=== PATIENT | male | born 1950 | race Caucasian/White ===

== ENCOUNTER 2017-03-20 21:18 | Emergency (ER) | payer BC, MEDICARE ==
--- NOTE | ~2017-03-20 | CT4 ---
[facility] A Service of [facility] RADIOLOGY TEXT RESULTS PATIENT: ADALBERTO MCLAUGHLIN V LOCATION: [facility] : [birth year] UNIT #: [id number] AGE: [address]: Keshawn Salmon MD SEX: M ORDER DR: [id number] [facility] [address] [place], [place] [address] [id number] E MR#: [id number] Acc #: [id number] NAME: ADALBERTO MCLAUGHLIN : 1950 SEX: M STUDY DATE/TIME: 03/20/2017 21:33 UNIT: [facility] ROOM: STUDY DESCRIPTION: CT Abd and Pelv Wo Cont Attending Physician: Chris Salmon M.D. Ordering Physician: Ed Lewis Bean M.D. Primary Care Physician: Adonis Sandoval M.D. MEDICAL IMAGING REPORT This report is preliminary unless electronic signature is present EXAMINATION CT abdomen and pelvis without contrast DATE 03/20/2017 HISTORY 66-year-old male with bleeding when urinating today. History of kidney stones. Previous myocardial infarction, transient ischemic attack, COPD and bronchitis. History of umbilical hernia repair. COMPARISON CT abdomen and pelvis with contrast 10/03/2014. CT angiography of the abdomen and pelvis 11/18/2016. PROCEDURE 3 mm axial images from the lung bases and lesser trochanters without intravenous or enteric contrast administration. Sagittal and coronal reformatted images were obtained. This CT exam was performed with one or more of the following radiation dose reduction techniques: automatic control, adjustment of mA and/or kV according to patient size, and iterative reconstruction. FINDINGS ABDOMEN FINDINGS: Some of the images are degraded by patient motion. Multiple nonobstructing bilateral intrarenal calculi are present. A dominant stone within the right lower renal pole measures approximately 8 mm. However, no definite ureteral calculus, hydronephrosis or hydroureter is appreciated on either side, no perinephric inflammatory changes are evident. Low-density bilateral renal lesion lesions are seen. The larger of these [facility] A Service of [facility] RADIOLOGY TEXT RESULTS PATIENT: ADALBERTO MCLAUGHLIN [id number] : [birth year] UNIT #: [id number] AGE: [address]: Keshawn Salmon MD SEX: M ORDER DR: are favored to represent cysts in each lower renal pole, largest on the left measuring 4 cm. A nonspecific low-density lesion in the right upper renal pole measures 8 mm, too small to characterize but statistically favored to represent a cyst. Advanced emphysematous changes are present in the lung bases. Focal nodular density is present within the left lung base measuring 1 cm which is a new finding since 11/10/2016, and is favored to represent benign infectious-inflammatory etiology, based upon its morphology. Liver, spleen, pancreas, adrenals are normal. Tiny gallstone is present without pericholecystic inflammation or biliary ductal dilation. 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 The endosac measures 4.3 x 3.8 cm and is unchanged compared to 11/18/2016. Evaluation of bowel is limited due to lack of enteric contrast. The appendix appears normal. Diverticular changes are present within the colon without evidence of acute diverticulitis. No evidence of active bowel inflammatory change or bowel obstruction. PELVIS FINDINGS: There is mild prostatic enlargement protruding into the urinary bladder base. The rectum is within normal limits. Surgical changes are seen within left groin. Probable bone island in the left iliac wing. No acute osseous abnormalities are identified. Moderately advanced diminished disc height at L5-S1. IMPRESSION 1. Nonobstructing bilateral renal stones. No ureteral calculus or hydronephrosis is seen. No perivesical or perinephric inflammatory changes are identified. 2. Low-density bilateral renal lesions favored to represent cysts, not appreciably changed from 11/18/2016. 3. 1 cm patchy nodular density in the periphery of the left lower lobe is new since 11/18/2016, strongly favored to represent focal infectious - inflammatory nodule. Consider short-term CT chest followup in 4-6 months to document improvement or resolution. Advanced emphysematous changes in lung bases. 4. 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 The endosac is stable at 4.3 cm. 5. Uncomplicated cholelithiasis. 6. Uncomplicated colonic diverticulosis. 7. Mild prostatic enlargement. Dictated by... Razia Vargas M.D. THIS IS AN ELECTRONICALLY VERIFIED REPORT [facility] A Service of [facility] & [facility] RADIOLOGY TEXT RESULTS PATIENT: ADALBERTO MCLAUGHLIN V [id number] : [birth year] UNIT #: [id number] AGE: [address]: Keshawn Salmon MD SEX: M ORDER DR: Razia Vargas M.D. at 03/25/2017 5:40 AM JESSICA/matt TD: 03/20/2017 23:58 JOB #: [id number] MEDICAL IMAGING REPORT Page 1 of 1 COPY
[2017-03-20 21:03] LABS: BASOPHIL% 0.5 % (0-2.5); EOSINOPHIL# 0.2 X10e3 (0-0.7); EOSINOPHIL% 2.8 % (0.0-7.0); HEMATOCRIT 43.8 % (38.0-50.0); HEMOGLOBIN 14.1 gm/dL (13.0-16.0); LYMPHOCYTE% 22.9 % (17.0-45.0); MEAN CELL VOLUME 89.6 FL (83-96); MEAN CORPUSCULAR HEMOGLOBIN 28.9 PG (28-34); MEAN CORPUSCULAR HGB CONC 32.3 g/dL (30-36); MEAN PLATELET VOLUME 7.5 FL (6.5-11.5); MONOCYTE% 11.5 % (3.0-12.0); NEUTROPHIL# 5.3 X10e3 (1.5-7.1); NEUTROPHIL% 62.3 % (40-75); PLATELET COUNT 264 X10e3 (140-420); RED BLOOD COUNT 4.89 X10e (3.90-5.60); RED CELL DISTRIBUTION WIDTH 14.6 % (11.0-15.5); WHITE BLOOD COUNT 8.5 X10e3 (4.0-10.5)
[2017-03-20 21:03] LABS: URINE SOURCE CLEAN CATCH
[2017-03-20 21:04] LABS: DIFF IND NO
[2017-03-20 21:08] LABS: URINE APPEARANCE CLEAR; URINE BILIRUBIN NEG (NEG); URINE BLOOD 3+ (NEG); URINE COLOR YELLOW; URINE GLUCOSE NEG (NEG); URINE KETONE NEG (NEG); URINE LEUKOCYTE ESTERASE TRACE (NEG); URINE NITRATE NEG (NEG); URINE PH 6.5 (5-8); URINE PROTEIN NEG (NEG); URINE SPECIFIC GRAVITY 1.011 (1.003-1.035)
[2017-03-20 21:10] LABS: URBCS1 AUWI INNUM /[HPF] (0-2); URINE BACTERIA AUWI NEG (NEGATIVE); URINE SQUAMOUS EPITHELIAL CELL NONE SEEN /[HPF]
[2017-03-20 21:11] LABS: CULTURE INDICATED? NO
[~2017-03-20 21:18] MED LIST: ADVAIR; ADVAIR 250-501 EACH IH; ADVAIR INH; ALPRAZOLAM; ALPRAZOLAM PO; ASPIRIN PO; ASPIRIN81 M1 PO; ASPIRIN81 M2 PO; ASTELIN137 MCG; BACTRIM DS TABL1 TA1 PO; COMBIVENT INH14.7 GM; COMBIVENT INH14.7 GM INH; COMBIVENT RESPIM4 GM INH; DEXAMETHASONE1 MG PO; FORADIL12 MCG; LEVAQUIN PO; LIPITOR; LOTREL; LOTREL 5/20 MG1 CAP PO; PLAVIX PO; PROAIR HFA8.5 GM INH; SPIRIVA18 MCG; SPIRIVA18 MCG INH; SYMBICORT INH; THEOPHYLLIN PO; ZOCOR PO; [UNRECOGNIZED DRUG - REMARK]
[2017-03-20 21:21] LABS: ALKALINE PHOSPHATASE 65 U/L (32-92); ALT (SGPT) 16 U/L (10-40); AST (SGOT) 21 U/L (10-42); BILIRUBIN,TOTAL 0.3 mg/dL (0.2-2.0); BLOOD UREA NITROGEN 14 mg/dL (9-23); BUN/CREATININE RATIO 15.55; CALCIUM SERUM 9.3 mg/dL (8.4-10.2); CARBON DIOXIDE 29 mmol/L (22-31); CHLORIDE 100 mmol/L (100-111); CREATININE SERUM 0.9 mg/dL (0.6-1.4); GLOM FILT RATE Estimated 88.1 mL/min (>60); GLUCOSE FASTING 100 mg/dL (70-110); POTASSIUM 4.2 mmol/L (3.5-5.1); PROTEIN TOTAL SERUM 7.7 g/dL (6.0-8.3); SODIUM 138 mmol/L (135-145)
[2017-03-20 21:34] LABS: INR 1.1; PROTHROMBIN TIME (PATIENT) 11.6 SECONDS (9.6-11.5)
[2017-03-20 21:55] LABS: BILIRUBIN, DIRECT <0.1 mg/dL (0.0-0.2); BILIRUBIN,INDIRECT 0.2 mg/dL (0.0-0.9)
== END 2017-03-21 00:05 | disposition home or self-care (01) ==
LOC: CED 21:18
PROVIDERS: Emergency Medicine
DX: R31.0 Gross hematuria (principal); J44.9 Chronic obstructive pulmonary disease, unspecified; Z86.73 Personal history of transient ischemic attack (TIA), and cerebral infarction without residual deficits; I25.2 Old myocardial infarction; Z88.0 Allergy status to penicillin
CPT/HCPCS: 36415; 74176; 80048; 80076; 81003; 85025; 85610; 96374; 96375; 99284; J2270; J2405; J2930

== ENCOUNTER → 2017-04-20 | Outpatient (CLI) | payer BC, MEDICARE ==
[~2017-04-20] MED LIST changes: +ALBUTEROL MININEB NEB; +ARNUITY ELLIP200 MCG INH; +DALIRESP500 MCG DOB; +IPRATROPIUM BROM5 GM MC; +LEXAPRO20 MG PO; +LIPITOR20 MG PO; +LOPRESSOR PO; +LOTREL 5-20 MG1 EACH PO; +METOPROLOL TAR25 MG PO; +OMEPRAZOLE20 M2 PO; +PREDNISONE PO; +STIOLTO RESPIMAT4 GM INH; +THEO-DUR300 MG PO
--- NOTE | ~2017-04-20 | US77 ---
[facility] A Service of [facility] & [facility] RADIOLOGY TEXT RESULTS PATIENT: ADALBERTO MCLAUGHLIN V LOCATION: [facility] : 49 UNIT #: [id number] AGE: [address]: Mitchell Vital MD SEX: M ORDER DR: [id number] [facility] [address] [place], [place] [address] [id number] O MR#: [id number] Acc #: [id number] NAME: ADALBERTO MCLAUGHLIN : 1950 SEX: M STUDY DATE/TIME: 04/20/2017 12:43 UNIT: [facility] ROOM: STUDY DESCRIPTION: US Kidney Bilateral Complete Attending Physician: Mitchell Vital M.D. Referring Physician: Mitchell Vital M.D. Ordering Physician: Mitchell Vital M.D. Primary Care Physician: Adonis Sandoval M.D. MEDICAL IMAGING REPORT This report is preliminary unless electronic signature is present EXAM Bilateral renal ultrasound DATE: 04/20/2017 HISTORY Kidney stone. Hematuria. Enlarged prostate. COPD. Hypertension. COMPARISON CT abdomen and pelvis without contrast 03/20/2017. FINDINGS The right kidney measures approximately 8.5 cm x 3.9 cm x 5.6 cm. The left kidney measures 8.3 cm x 4.0 cm x 4.4 cm. Mildly complex cyst containing a single thin internal septation is seen within the left lower renal pole measuring 4.2 cm x 3.3 cm x 4.2 cm. The cystic focus in the right lower renal pole documented on previous CT is not satisfactorily visualized on today's ultrasound. The small nonobstructing stone seen within both kidneys on previous CT have no definite sonographic correlate today. No hydronephrosis is seen. Urinary bladder is within normal limits. IMPRESSION 1. Benign appearing mildly complex cyst in the left lower renal pole measuring up to 4.2 cm. 2. Cystic focus seen at the right lower renal pole on previous CT is not well visualized on today's examination. 3. The nonobstructing bilateral renal stones seen on previous CT cannot be satisfactorily visualized on today's examination. 4. No hydronephrosis. STS. [facility] A Service of [facility] & [facility] RADIOLOGY TEXT RESULTS PATIENT: ADALBERTO MCLAUGHLIN V LOCATION: [facility] #: [id number] : [birth year] UNIT #: [id number] AGE: [address]: Mitchell Vital MD SEX: M ORDER DR: Dictated by... Razia Vargas M.D. THIS IS AN ELECTRONICALLY VERIFIED REPORT Razia Vargas M.D. at 04/21/2017 2:10 PM JESSICA/monica TD: 04/20/2017 22:00 JOB #: [id number] MEDICAL IMAGING REPORT Page 1 of 1 COPY
== END | disposition home or self-care (01) ==
LOC: CGUS 12:13
DX: N20.0 Calculus of kidney (principal); N28.1 Cyst of kidney, acquired
CPT/HCPCS: 76770

== ENCOUNTER 2017-07-24 18:39 | Inpatient (IN) | payer BC, MEDICARE ==
[~2017-07-24] VITALS: Ht 182.9 cm; Wt 78.2 kg
--- NOTE | ~2017-07-24 | HP ---
Unit #: [id number] #: [id number] Patient: ADALBERTO MCLAUGHLIN V [id number] [address] [place], [place] [address] [id number] I MR#: [id number] NAME: ADALBERTO MCLAUGHLIN V. ROOM: 578 Age: 67 Sex: M Admission Date: 07/24/2017 : 1950 Attending Physician: Josue Perkins M.D. Primary Care Physician: Adonis Sandoval M.D. HISTORY AND PHYSICAL CHIEF COMPLAINT Cough, shortness of breath, chest pressure, chest tightness. DISCUSSION This is a 67-year-old gentleman with past medical history of COPD, oxygen dependent, dyslipidemia, anxiety, panic attack, depression, hypertension, history of acid reflux, abdominal aortic aneurysm status post repair in 2014. He presented to emergency with chief complaint of cough, shortness of breath, chest tightness, wheezing. These symptoms got progressively worse over last one week but got progressively worse over three days and he underwent workup. Underwent evaluation, found to be wheezing in the emergency room, given nebulizer. He has a drop in oxygen on ambulation 84%. Underwent further workup on CT scan. CT scan showing there's a new soft tissue mass in the mediastinum 2.4 x 4.4 cm at T4 level concerning for lung malignancy and he had been admitted for further workup and evaluation. He denies fever, chills. He said he had some chest tightness and chest pressure but denies any chest pain, diaphoresis, palpitation, dysuria or any other complaint. PAST MEDICAL HISTORY 1. COPD, oxygen dependent. 2. Hypertension. 3. History of abnormal Cardiolite stress test in 2012, followed by cardiac cath which was normal. 4. History of ex-smoking, quit smoking in the past. Smoked for 40 years. 5. History of anxiety/panic attack. 6. Depression. 7. GERD. 8. History of abdominal aortic aneurysm, status post repair in 2014. PAST SURGICAL HISTORY 1. Back surgery. 2. Right knee surgery. 3. Abdominal surgery in the past. 4. Varicose vein surgery. 5. Abdominal aortic aneurysm repair in 2014. SOCIAL HISTORY Patient lives with . He quit smoking 16-17 years ago but he smoked before that for 40 years. Denies alcohol abuse. No other illicit drug abuse. He is on disability. ALLERGIES Unit #: [id number] #: [id number] Patient: ADALBERTO MCLAUGHLIN V Allergic to penicillin. FAMILY HISTORY Patient's mother at age 71 from [place]. The patient's father at age 68 from COPD. MEDICATIONS Medication from home is followin. Lotrel /20, 1 tablet p.o. daily. 2. Daliresp 500 mcg daily. 3. Omeprazole 20 mg daily. 4. Albuterol and Atrovent 4x a day p.r.n. 5. Lipitor 20 mg daily. 6. Stiolto, 2 puffs daily. 7. Prateek-Dur 300 mg b.i.d. 8. Xanax 0.25 mg 3x daily. 9. Arnuity Ellipta 200 mcg daily. 10. Metoprolol 12.5 mg p.o. twice daily. 11. Lexapro 20 mg daily. REVIEW OF SYSTEMS All review of system negative except History of Presenting Illness. PHYSICAL EXAMINATION On examination, middle aged man lying in the bed comfortably, not in any distress. VITAL SIGNS: His current vitals are following - temperature 97.8, heart rate 87, respiratory rate 18, blood pressure 134/74. Oxygen 97% and on ambulation oxygen dropped to 84%. GENERAL: On general examination, he is alert, awake, oriented x3, comfortable, not in any distress. HEENT: On HEENT examination, pupils equal, reactive to light and accommodation. Head is normocephalic, atraumatic. Extraocular muscles intact. Mucous membranes moist. NECK: Supple. No JVD, no thyromegaly, no carotid bruit. LUNGS: Decreased air entry bilaterally with scattered wheeze. HEART: S1, S2. Regular rate and rhythm. No murmur. ABDOMEN: Soft, nontender, nondistended. Bowel sound positive. EXTREMITIES: Inspection normal. No cyanosis, no clubbing, no edema. NEUROLOGICAL: He is alert, oriented x3. No focal neurologic deficits. Power 5/5 on both sides. Cranial nerves II-XII intact. SKIN: Warm and dry. PSYCH: Normal mood and affect. DIAGNOSTIC STUDIES LABORATORY: His laboratory workup is following - INR is 1.1, BNP 31. Chemistry - sodium 137, potassium 3.9, chloride 100, glucose 115, BUN 16, creatinine 0.8. LFT within normal limit. Troponin less than 0.05. White count 8.8, hemoglobin 13, hematocrit 40, platelet 260. IMAGING: Chest x-ray unremarkable. CT scan of chest shows new soft tissue mass in mediastinum 2.4 x 4.4 x 5 cm at level of T4 consistent for lung malignancy. Unit #: [id number] #: [id number] Patient: ADALBERTO MCLAUGHLIN V ASSESSMENT AND PLAN 1. Acute exacerbation of COPD, oxygen dependent at home. Will admit the patient, start on IV Rocephin, Zithromax, dual nebulizer, IV Solu-Medrol. 2. New soft tissue malignancy appearing mass in mediastinum concerning for lung malignancy primary and will ask Dr. Pickering to evaluate and will get a CT head without contrast. 3. History of dyslipidemia. 4. Anxiety/panic attack. 5. History of depression. 6. Hypertension. 7. Abdominal aortic aneurysm. History of repair in 2014. 8. History of GERD. 9. History of abnormal stress test in the past but cardiac cath was normal in 2012. 10. DVT prophylaxis. Will place the patient on Lovenox. Dictated by Juan Cuellar M.D. RAMON/palma TD: 07/25/2017 11:02 JOB #: [id number] HISTORY AND PHYSICAL Page 1 of 1 X X HISTORY AND PHYSICAL
--- NOTE | ~2017-07-24 | CR72 ---
[facility] A Service of [facility] & [facility] RADIOLOGY TEXT RESULTS PATIENT: ADALBERTO MCLAUGHLIN V LOCATION: [facility] 578-01 : [birth year] UNIT #: [id number] AGE: [address]: CASIMIRO TORRESJ Idalia SEX: M ORDER DR: [id number] [facility] [address] [place], [place] [address] [id number] I MR#: [id number] Acc #: [id number] NAME: ADALBERTO MCLAUGHLIN V. : 1950 SEX: M STUDY DATE/TIME: 07/24/2017 19:35 UNIT: [facility] ROOM: [facility] STUDY DESCRIPTION: CR Chest Single View Portable Attending Physician: Josue Perkins M.D. Ordering Physician: Thad Wesley M.D. Primary Care Physician: Adonis Sandoval M.D. MEDICAL IMAGING REPORT This report is preliminary unless electronic signature is present EXAM AP view of the chest COMPARISON August 03, 2016, May 29, 2016 and April 03, 2016. INDICATIONS 67-year-old male with dyspnea and chest pain for 2 days. History of emphysema and COPD. 30+ year history of cigarette smoking. FINDINGS Marked emphysema is again noted. There is lung hyperexpansion most suggestive of COPD. There is slightly increased opacities in the left lung base and the medial right lung base which may reflect atelectasis. These appear to not persist in the left lung base on all views, but are somewhat persistent in the right lung base, perhaps accentuated by overlapping ribs and eventration of the diaphragm. This appearance appears stable as compared to April 03, 2016. Cardiomediastinal silhouette is within normal limits. There is calcification of the aortic arch. IMPRESSION 1. Not mentioned in the body of the report there is suprarenal abdominal aortic stent, grossly stable in position when comparing to July 2016. 2. Opacities in the left lung base which do not persist on the same exam, most consistent with atelectasis. Some very faint opacities in the medial right lung base which may be actually reflective of normal bronchovascular structures overlapping with the ribs and the diaphragm. This would seem to at most represent atelectasis. Correlation to exclude signs of possible pneumonia recommended which is thought less likely. No evidence of a pneumothorax or pleural effusion. 3. Grossly stable findings of COPD and emphysema. [facility] A Service of [facility] & [facility] RADIOLOGY TEXT RESULTS PATIENT: ADALBERTO MCLAUGHLIN V LOCATION: [place] [address] : [birth year] UNIT #: [id number] AGE: [address]: DARRIUS TORRES V SEX: M ORDER DR: Dictated by... Jeffrey Chowdhury M.D. THIS IS AN ELECTRONICALLY VERIFIED REPORT Jeffrey Chowdhury M.D. at 07/31/2017 9:17 PM SALAZAR/richard TD: 07/25/2017 11:30 JOB #: [id number] MEDICAL IMAGING REPORT Page 1 of 1 COPY
--- NOTE | ~2017-07-24 | CT16 ---
[facility] A Service of [facility] & [facility] RADIOLOGY TEXT RESULTS PATIENT: ADALBERTO MCLAUGHLIN V LOCATION: [facility] 578-01 : [birth year] UNIT #: [id number] AGE: [address]: Josue Perkins MD SEX: M ORDER DR: [id number] [facility] [address] [place], [place] [address] [id number] I MR#: [id number] Acc #: [id number] NAME: ADALBERTO MCLAUGHLIN V. : 1950 SEX: M STUDY DATE/TIME: 07/24/2017 21:23 UNIT: [facility] ROOM: [facility] STUDY DESCRIPTION: CT Angio Chest for PE Attending Physician: Josue Perkins M.D. Ordering Physician: Thad Wesley M.D. Primary Care Physician: Adonis Sandoval M.D. MEDICAL IMAGING REPORT This report is preliminary unless electronic signature is present EXAM Chest CT PE protocol with contrast 07/24/2017 INDICATIONS Short of air chest tightness, pain with inspiration 3 days. Elevated D-dimer. TECHNIQUE Contrast enhanced CT scan chest PE protocol was performed with 3-D reformats. This CT exam was performed with one or more of the following radiation dose reduction techniques: automatic exposure control, adjustment of mA and/or kV according to patient size, and iterative reconstruction. COMPARISON 10/28/[address] chest: IV bolus adequate. The patient is status post aortic stent placement. There is advanced atherosclerotic change of the visualized abdominal aorta. Thoracic aorta demonstrates more mild atherosclerotic change. No aneurysm or dissection. No evidence of acute pulmonary embolus in the central pulmonary arterial tree. Included thyroid unremarkable. No pericardial effusion. Incidental gynecomastia. No axillary adenopathy. There is a new soft tissue mass posterior to the trachea extending into the tracheoesophageal groove with a posterior margin abutting the T4 vertebral body. The mass extends to the level of the jorge. Dimensions are approximately 2.4 x 4.4 x 5.0 cm. The posterior margin abuts the trachea and there is obliteration of the fat planes between the mass, the trachea and the esophagus. On the sagittal reformats there appears to be STS. [facility] A Service of [facility] & [facility] RADIOLOGY TEXT RESULTS PATIENT: ADALBERTO MCLAUGHLIN V LOCATION: [facility] 578-01 : [birth year] UNIT #: [id number] AGE: [address]: Josue Perkins MD SEX: M ORDER DR: subtle erosive change of the anterior margin of the fourth vertebral body. Imaging features are most characteristic of malignancy until proven otherwise. This is new compared to the prior study. There are smaller mediastinal nodes present. Several of which were present on the prior study and therefore likely benign. This includes precarinal nodes. These could be better assessed with PET CT for metabolic activity, however. Included upper abdomen demonstrates no acute finding. Lungs are emphysematous. There are scattered areas of scarring and probable atelectasis. No effusion. Extensive bleb formation and bulla formation in the upper lobes left greater than right. Chronic-appearing rounded atelectasis in the middle lobe. More confluent scarring in the upper lobe on the right demonstrating progression since the prior study. There is no compression fracture or malalignment. IMPRESSION 1. There is no evidence of thoracic aortic aneurysm. The patient is status post aortic stent graft placement in the visualized abdomen. No aortic dissection. 2. No PE. 3. There is a new malignant appearing soft tissue mass to the right of midline in the mediastinum measuring 2.4 x 4.4 x 5.0 cm. It is situated at the T4 level and margins abut the fourth vertebral body, esophagus and trachea with obliteration of the fat planes. There are subtle erosive changes of T4. Imaging features most likely reflect primary lung malignancy. PET CT recommended for further assessment. 4. Indeterminate mediastinal nodes that can be further assessed with PET CT as described above. 5. Advanced emphysematous change in the lungs with scarring and fibrotic change demonstrating progression compared to the prior CT in 2014. No effusion. 6. Upper abdomen demonstrates no acute finding. Dictated by... Faheem Coats M.D. THIS IS AN ELECTRONICALLY VERIFIED REPORT Faheem Coats M.D. at 07/25/2017 11:33 PM ELVIA/richard TD: 07/25/2017 13:09 JOB #: [id number] MEDICAL IMAGING REPORT Page 1 of 1 COPY
--- NOTE | ~2017-07-24 | EKG ---
PATIENT: ADALBERTO MCLAUGHLIN UNIT #: [id number] Ventricular Rate: 78 BPM Atrial Rate: 78 BPM P-R Interval: 188 ms QRS Duration: 90 ms Q-T Interval: 386 ms QTC Calculation(Bezet): 440 ms P [place]: 76 degrees Calculated R [place]: 65 degrees Calculated T [place]: 73 degrees Diagnosis Line: Normal sinus rhythm Diagnosis Line: Normal ECG Diagnosis Line: When compared with ECG of 29-MAY-2016 23:05, Diagnosis Line: No significant change was found Diagnosis Line: Confirmed by ZARI MENDIOLA MD ([id number]) on Diagnosis Line: 07/25/2017 5:06:52 PM INTERPRETING MD: ALISA
--- NOTE | ~2017-07-24 | CT71 ---
[facility] A Service [facility] RADIOLOGY TEXT RESULTS PATIENT: ADALBERTO MCLAUGHLIN V LOCATION: [facility] [place] [facility] : [birth year] UNIT #: [id number] AGE: [address]: DARRIUS TORRES V SEX: M ORDER DR: [id number] [facility] [address] [place], [place] [address] [id number] I MR#: [id number] Acc #: [id number] NAME: ADALBERTO MCLAUGHLIN V. : 1950 SEX: M STUDY DATE/TIME: 07/25/2017 0:51 UNIT: [facility] [place] [facility] ROOM: [facility] STUDY DESCRIPTION: CT Head Wo Contrast Attending Physician: Josue Perkins M.D. Ordering Physician: Juan Cuellar M.D. Primary Care Physician: Adonis Sandoval M.D. MEDICAL IMAGING REPORT This report is preliminary unless electronic signature is present EXAM CT head without contrast INDICATIONS Lung mass. Observation for metastatic disease. PROCEDURE Unenhanced CT of the head. This CT exam was performed with one or more of the following radiation dose reduction techniques: automatic exposure control, adjustment of mA and/or kV according to patient size, and iterative reconstruction. COMPARISON 09/02/2010 FINDINGS No visible intracranial mass. No mass effect, acute hemorrhage, extraaxial fluid collection or hydrocephalus. No depressed calvarial fracture. The paranasal sinuses and mastoid air cells are clear. IMPRESSION No acute intracranial findings. Dictated by... Chris Erickson M.D. THIS IS AN ELECTRONICALLY VERIFIED REPORT Chris Erickson M.D. at 07/26/2017 10:03 PM EED/to TD: 07/25/2017 13:50 JOB #: [id number] [facility] A Service [facility] RADIOLOGY TEXT RESULTS PATIENT: ADALBERTO MCLAUGHLIN V LOCATION: [facility] [place] [facility] 578- : [birth year] UNIT #: [id number] AGE: [address]: DARRIUS TORRES V SEX: M ORDER DR: MEDICAL IMAGING REPORT Page 1 of 1 COPY
--- NOTE | ~2017-07-24 | DS ---
Unit #: [id number] #: [id number] Patient: AADLBERTO MCLAUGHLIN V [id number] [address] [place], [place] [address] [id number] MR#: [id number] NAME: ADALBERTO MCLAUGHLIN V. ROOM: 578 Age: 67 Sex: M Admission Date: 07/24/2017 : 1950 Discharge Date: 07/27/2017 Attending Physician: Jorge Sharpe M.D. Primary Care Physician: Adonis Sandoval M.D. DISCHARGE SUMMARY DISCHARGE DIAGNOSES 1. Acute exacerbation of chronic obstructive pulmonary disease with acute respiratory failure and hypoxia. 2. Soft tissue mass measuring 2.4 x 4.4 x 5 cm located in the chest at the level of T4 extending from the esophagus to the trachea and the vertebral body. HOSPITAL COURSE The patient is a 67-year-old mariely with a past medical history of chronic obstructive pulmonary disease, oxygen dependent anxiety disorder, hypertension, acid reflux, who presents with symptoms of cough and shortness of breath sudden onset. He was noted to have an O2 sat of 84% on presentation. His acute respiratory failure, COPD exacerbation was treated with bronchodilators, glucocorticoids and azithromycin. The patient underwent a CAT scan that demonstrated a soft tissue mass in the mediastinum 2.4 x 4.4 x 5.0 cm located at the level of T4 in the mediastinum, extending from the esophagus, trachea to the vertebral body. The patient will followup with his pulmonary physician for an outpatient PET scan. For further evaluation of the mass, which is suggestive of lung malignancy. This has been explained to the patient. DISCHARGE MEDICATIONS 1. Albuterol nebulizer four times a day. 2. Combivent one puff q.4 p.r.n. 3. Lexapro 20 mg p.o. daily. 4. Stiolto Respimat inhalation spray two puffs daily. 5. Xanax 0.25 mg p.o. t.i.d. 6. Lotrel 5 x 20 mg p.o. once daily. 7. Metoprolol 12.5 mg p.o. b.i.d. 8. Fluticasone inhaler 200 mcg inhaled daily. 9. Lipitor 20 mg p.o. daily. 10. Omeprazole 20 mg p.o. daily. 11. Theophylline 300 mg p.o. b.i.d. 12. Daliresp 500 mcg daily. 13. Prednisone taper. 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 Unit #: [id number] #: [id number] Patient: LISSETTEADALBERTO V Dictated by... JorgeKasandra Johnson/fco TD: 07/29/2017 07:09 JOB #: [id number] DISCHARGE SUMMARY Page 1 of 1 X X DISCHARGE SUMMARY
[~2017-07-24 18:39] MED LIST changes: -ALBUTEROL MININEB NEB; -ARNUITY ELLIP200 MCG INH; -DALIRESP500 MCG DOB; -IPRATROPIUM BROM5 GM MC; -LEXAPRO20 MG PO; -LIPITOR20 MG PO; -LOPRESSOR PO; -LOTREL 5-20 MG1 EACH PO; -METOPROLOL TAR25 MG PO; -OMEPRAZOLE20 M2 PO; -PREDNISONE PO; -STIOLTO RESPIMAT4 GM INH; -THEO-DUR300 MG PO
[2017-07-24 20:04] LABS: BASOPHIL% 0.4 % (0-2.5); EOSINOPHIL# 0.3 X10e3 (0-0.7); EOSINOPHIL% 3.1 % (0.0-7.0); HEMATOCRIT 40.3 % (38.0-50.0); HEMOGLOBIN 13.2 gm/dL (13.0-16.0); LYMPHOCYTE# 2.3 X10e3 (1.0-3.5); MEAN CELL VOLUME 91.2 FL (83-96); MEAN CORPUSCULAR HEMOGLOBIN 29.8 PG (28-34); MEAN CORPUSCULAR HGB CONC 32.6 g/dL (30-36); MEAN PLATELET VOLUME 7.5 FL (6.5-11.5); MONOCYTE% 11.8 % (3.0-12.0); NEUTROPHIL# 5.2 X10e3 (1.5-7.1); NEUTROPHIL% 58.7 % (40-75); PLATELET COUNT 260 X10e3 (140-420); RED BLOOD COUNT 4.42 X10e (3.90-5.60); RED CELL DISTRIBUTION WIDTH 15.1 % (11.0-15.5); WHITE BLOOD COUNT 8.8 X10e3 (4.0-10.5)
[2017-07-24 20:05] LABS: DIFF IND NO
[2017-07-24 20:19] LABS: INR 1.1; PARTIAL THROMBOPLASTIN TIME 28.5 SECONDS (23.5-31.3); PROTHROMBIN TIME (PATIENT) 11.5 SECONDS (10.0-11.7)
[2017-07-24 20:20] LABS: POC - TROPONIN <0.05 ng/mL (<=0.05)
[2017-07-24 20:28] LABS: ALBUMIN SERUM 3.6 g/dL (3.5-5.0); BILIRUBIN, DIRECT 0.1 mg/dL (0.0-0.2); BILIRUBIN,INDIRECT 0.4 mg/dL (0.0-0.9); BILIRUBIN,TOTAL 0.5 mg/dL (0.2-2.0); CALCIUM SERUM 9.3 mg/dL (8.4-10.2); CREATININE SERUM 0.8 mg/dL (0.6-1.4); GLOM FILT RATE Estimated 91.8 mL/min (>60); POTASSIUM 3.9 mmol/L (3.5-5.1); PROTEIN TOTAL SERUM 7.5 g/dL (6.0-8.3)
[2017-07-24] MEDS ORDERED: LIPITOR20 MG PO (22:30)
[2017-07-24] MEDS ORDERED: STIOLTO RESPIMAT4 GM INH (22:31)
[2017-07-24] MEDS ORDERED: THEO-DUR300 MG PO (22:33)
[2017-07-24] MEDS ORDERED: COMBIVENT RESPIM4 GM INH (22:33)
[2017-07-24] MEDS ORDERED: LOTREL 5-20 MG1 EACH PO (22:34)
[2017-07-24] MEDS ORDERED: ALPRAZOLAM PO (22:34)
[2017-07-24] MEDS ORDERED: DALIRESP500 MCG DOB (22:35)
[2017-07-24] MEDS ORDERED: OMEPRAZOLE20 M2 PO (22:37)
[2017-07-24] MEDS ORDERED: LOPRESSOR PO (22:37)
[2017-07-24] MEDS ORDERED: IPRATROPIUM BROM5 GM MC (22:37)
[2017-07-24] MEDS ORDERED: ALBUTEROL MININEB NEB (22:38)
[2017-07-24] MEDS ORDERED: ARNUITY ELLIP200 MCG INH (22:39)
[2017-07-24] MEDS ORDERED: METOPROLOL TAR25 MG PO (22:49)
[2017-07-24] MEDS ORDERED: LEXAPRO20 MG PO (22:49)
[2017-07-25 04:23] LABS: POC - CKMB 5.7 ng/mL (0.0-7.9); POC - TROPONIN <0.05 ng/mL (<=0.05)
[2017-07-25 07:17] LABS: BASOPHIL% 0.1 % (0-2.5); HEMATOCRIT 41.6 % (38.0-50.0); HEMOGLOBIN 13.8 gm/dL (13.0-16.0); LYMPHOCYTE# 0.8 X10e3 (1.0-3.5); LYMPHOCYTE% 9.7 % (17.0-45.0); MEAN CORPUSCULAR HEMOGLOBIN 30.4 PG (28-34); MEAN CORPUSCULAR HGB CONC 33.1 g/dL (30-36); MEAN PLATELET VOLUME 7.3 FL (6.5-11.5); MONOCYTE# 0.1 X10e3 (0-1.0); MONOCYTE% 1.6 % (3.0-12.0); NEUTROPHIL# 7.5 X10e3 (1.5-7.1); NEUTROPHIL% 88.6 % (40-75); PLATELET COUNT 260 X10e3 (140-420); RED BLOOD COUNT 4.52 X10e (3.90-5.60); RED CELL DISTRIBUTION WIDTH 14.9 % (11.0-15.5); WHITE BLOOD COUNT 8.5 X10e3 (4.0-10.5)
[2017-07-25 07:19] LABS: DIFF IND NO
[2017-07-25 07:45] LABS: CALCIUM SERUM 9.3 mg/dL (8.4-10.2); POTASSIUM 5.2 mmol/L (3.5-5.1)
[2017-07-26 07:27] LABS: HEMATOCRIT 37.8 % (38.0-50.0); HEMOGLOBIN 12.3 gm/dL (13.0-16.0); MEAN CELL VOLUME 91.3 FL (83-96); MEAN CORPUSCULAR HEMOGLOBIN 29.8 PG (28-34); MEAN CORPUSCULAR HGB CONC 32.6 g/dL (30-36); MEAN PLATELET VOLUME 7.5 FL (6.5-11.5); RED BLOOD COUNT 4.14 X10e (3.90-5.60); RED CELL DISTRIBUTION WIDTH 15.6 % (11.0-15.5); WHITE BLOOD COUNT 16.9 X10e3 (4.0-10.5)
[2017-07-26 07:45] LABS: BUN/CREATININE RATIO 23.33; CALCIUM SERUM 9.3 mg/dL (8.4-10.2); CREATININE SERUM 0.9 mg/dL (0.6-1.4); GLOM FILT RATE Estimated 87.5 mL/min (>60); POTASSIUM 4.5 mmol/L (3.5-5.1)
[2017-07-27] MEDS ORDERED: PREDNISONE PO (10:52)
== END 2017-07-27 12:31 | disposition home or self-care (01) | DRG 190 ==
LOC: CED 18:39 → CEDOF 23:00 → CED 23:00 → C5C 07-25 08:30 → CEDOF 07-25 08:30 → C5C 07-26 07:12
PROVIDERS: Emergency Medicine; Family Medicine; Internal Medicine
DX: J44.1 Chronic obstructive pulmonary disease with (acute) exacerbation (principal); J96.01 Acute respiratory failure with hypoxia; Z88.0 Allergy status to penicillin; R22.2 Localized swelling, mass and lump, trunk; F41.9 Anxiety disorder, unspecified; I10 Essential (primary) hypertension; Z87.891 Personal history of nicotine dependence; K21.9 Gastro-esophageal reflux disease without esophagitis; Z99.81 Dependence on supplemental oxygen
CPT/HCPCS: 36415; 70450; 71010; 71275; 80048; 80076; 82308; 82553; 83880; 84132; 84484; 85025; 85027; 85379; 85610; 85730; 87070; 87205; 87633; 93005; 94640; 94644; 94664; 94760; 96374; 96375; 99285; J0456; J0696; J1650; J1885; J2060; J2405; J2930; Q9967